=== PATIENT | female | born 1990 | race Caucasian/White ===

== ENCOUNTER 2023-05-08 19:05 | Inpatient (IN) | payer OTHER, SELFPAY ==
[2023-05-08 19:35] VITALS: PULSE 110; TEMP 36.9; O2SAT 92; O2SAT 96
[2023-05-08 19:36] VITALS: BP 133/75; PULSE 105
[2023-05-08 19:37] VITALS: BMI 37.3
[2023-05-08] MEDS: Lactated Ringers 1,000 ML 50 ML IV (19:40)
--- NOTE | 2023-05-08 19:45 | HP.PCM.OB_ITS ---
HPI - General General Date of Admission: 05/08/23 HPI Narrative MONISHA SALAZAR, is a 32 F at 39.6 weeks gestation who presents for elective induction of labor. Patient has a history of loss at 5 months of age due to anomalies. has been uncomplicated. GBS positive. Maternal Data Information ALINA Calculator Estimated Delivery Date Method Current WG Current Estimate 05/09/23 Manual 39w 6d [facility] Medical History (Updated 05/08/23 @ 19:51 by Ayana Marcelo CNM) HPV (human papilloma virus) infection depression Home Medications [id number] 1 mg tablet 1 tab PO DAILY 05/08/23 [History Last Taken 05/08/23 07:00 1 TAB] Allergy/AdvReac Type Severity Reaction Status Date / Time Sulfa (Sulfonamide Allergy Hives Verified 05/08/23 19:39 Antibiotics) ROS Eyes Eyes: Denies blurry vision, change in vision or spots in vision ENT HEENT: Denies dizziness or headache(s) Cardiovascular Cardiovascular: Denies abdominal pain, chest pain or dyspnea Respiratory/Chest Respiratory/Chest: Denies cough, dyspnea, shortness of breath at rest or shortness of breath with exertion Gastrointestinal Gastrointestinal: Denies abdominal pain, diarrhea or vomiting Genitourinary Genitourinary: Denies change in urinary stream, difficulty urinating or dysuria Musculoskeletal Musculoskeletal: Reports none Integumentary Integumentary: Denies rash Neurologic Neurologic: Denies dizziness, headache(s), memory loss or weakness Psychiatric Psychiatric: Reports none Vital Signs Vital Signs Vital Signs: 05/08/23 19:35 05/08/23 19:35 05/08/23 19:35 Temperature Temperature Source Temporal Pulse Rate 110 H Blood Pressure BP Systolic BP Diastolic Pulse Ox 92 05/08/23 19:36 05/08/23 19:36 05/08/23 19:35 Temperature Temperature Source Pulse Rate 105 H Blood Pressure 133/75 H BP Systolic 133 BP Diastolic 75 Pulse Ox 96 05/08/23 19:35 Temperature 98.4 F Temperature Source Pulse Rate Blood Pressure BP Systolic BP Diastolic Pulse Ox Weight Weight: 238 lb 6 oz Body Mass Index (BMI) 37.3 Physical Exam Const alert, oriented x3 and no apparent distress General Appearance: cooperative Orientation / Consciousness: awake Exam Limitations: no limitations HEENT normocephalic Head and Scalp: normal to inspection Eyes General Eye: normal appearance of both eyes Neck full ROM and no lymphadenopathy Lymph Lymphatic: no lymphadenopathy noted Chest inspection of chest normal Resp normal respiratory effort, normal air movement and clear to auscultation bilaterally Effort and Inspection: able to speak in complete sentences and symmetric chest m ovement Cardio regular rate and regular rhythm GI normal to inspection, nondistended, normoactive bowel sounds Manual OB Exam: presentation cephalic Back/Spine normal ROM Extremity full ROM and no calf tenderness Skin no rashes or lesions noted General Skin Exam: no breakdown Neuro oriented x3 and CN's II-XII intact bilaterally Psych mental status grossly normal and thought process normal Labs Labs Labs: Blood Type Pending Antibody Screen NEGATIVE Hct 39.1 % (37-47) Hgb 12.9 g/dL (12.0-15.0) Syphilis Total Ab Non-reactive Assessment & Plan (1) Positive GBS test: (2) 39 weeks gestation of : (3) Encounter for elective induction of labor: (4) History of : PLAN: Plan Admit to labor and delivery Routine labs Start IV fluids and run per orders Start PCN 5 million units IV x 1 now then continue PCN 3 million units IV every 4 hours until delivery CE- /-3 Cytotec 25 mcg PO x 1 now and reevaluate in [address] Paniagua notified and involved with plan of care
[2023-05-08 19:54] LABS: Absolute Lymphocyte Count 1.42 X10^3/uL (0.83-4.51); Absolute Neutrophil Count 8.4 X10^3/uL (2.0-7.7); Basophil# 0.03 X10^3/uL; Basophil% 0.3 % (0-1); Eosinophil# 0.07 X10^3/uL; Eosinophils% 0.6 % (0-5); Hematocrit 39.1 % (37-47); Hemoglobin 12.9 g/dL (12.0-15.0); Lymphocyte # 1.42 X10^3/ul (0.83-4.51); Lymphocyte % 13.1 % (19-41); Mean Corpuscular Hgb 31.4 pg (27.0-32.0); Mean Corpuscular Volume 95.1 fL (81-99); Mean Platelet Vol. 10.3 fl (6.2-12.0); Monocyte# 0.89 X10^3/uL; Monocyte% 8.2 % (0-10); NRBC Flagged by Analyzer 0 % (0-5); Neutrophil # 8.35 X10^3/uL (2.7-7.7); Platelet Count 297 K/mm3 (150-450); RBC Distribution Width CV 14.1 % (11.6-14.6); RBC Distribution Width SD 49.1 fl (35.1-43.9); Red Blood Count 4.11 M/mm3 (4.2-5.4); White Blood Count 10.9 K/mm3 (4.4-11.0)
[2023-05-08 20:20] VITALS: BP 137/75; PULSE 86; TEMP 37.1; O2SAT 96
[2023-05-08 20:38] LABS: Syphilis Antibodies Non-reactive
[2023-05-08] MEDS: miSOPROStol 25 MCG TABLET PO (20:52)
[2023-05-08 23:10] VITALS: TEMP 36.8; O2SAT 93; O2SAT 97
[2023-05-08 23:11] VITALS: BP 127/67; PULSE 87
[2023-05-09] VITALS (59 sets, daily range): BP systolic 101–139; BP diastolic 53–83; PULSE 68–110; TEMP 36.4–38.1; O2SAT 92–100
[2023-05-09] MEDS: Penicillin G 3,000,000 Units 50 ML 100 UNITS IV ×3 (00:55→08:57)
[2023-05-09] MEDS: miSOPROStol 25 MCG TABLET PO (01:02)
[2023-05-09] MEDS: Oxytocin 15 Units/NS 250ml 15 UNITS/250 ML IV.SOLN 2 UNITS IV (06:36)
[2023-05-09] MEDS: 0.9% Normal Saline Single 100 ML IV.SOLN. INTRA-UTER (07:12)
[2023-05-09] MEDS: LACTATED RINGERS 500 ML 999 ML IV (07:35)
[2023-05-09] MEDS: Ondansetron 4 MG/2 ML Vial IV ×2 (09:23→22:42)
[2023-05-09] MEDS: fentaNYL-bupivacaine (epidural) 100 ML BAG EPIDURAL ×3 (09:43→17:24)
[2023-05-09] MEDS: Lactated Ringers 1,000 ML 200 ML IV ×3 (11:06→22:45)
--- NOTE | 2023-05-09 12:30 | PCM.PN.OB ---
Subjective Subjective patient comfortable with epidural Objective Data Objective Data Vital Signs: Vital Signs Temp Pulse BP Pulse Ox 98.8 F 86 117/59 L 100 05/09/23 12:12 05/09/23 12:12 05/09/23 12:11 05/09/23 12:12 Weight: 238 lb 6 oz Body Mass Index (BMI) 37.3 Intake & Output: Intake and Output for Last 24 Hours 05/07/23 05/08/23 05/09/23 23:59 23:59 23:59 Intake Total 105 / 105 1629.83 / 1629.83 Balance 105 / 105 1629.83 / 1629.83 Lab / Micro Data 05/08/23 19:40 Labs: Laboratory Results - last 24 hr 05/08/23 19:40: WBC 10.9, RBC 4.11 L, Hgb 12.9, Hct 39.1, MCV 95.1, MCH 31.4, MCHC 33.0, RDW Std Deviation 49.1 H, RDW Coeff of Isaac 14.1, Plt Count 297, MPV 10.3, Immature Gran % (Auto) 0.800, Neut % (Auto) 77.0 H, Lymph % (Auto) 13.1 L, [place] % (Auto) 8.2, Eos % (Auto) 0.6, Baso % (Auto) 0.3, Absolute Neuts (auto) 8.4 H, Absolute Lymphs (auto) 1.42, Nucleated RBC % 0, Syphilis Total Ab Non-reactive, Antibody Screen NEGATIVE Physical Exam Narrative: cvx - 5/60/-3 NST FHR Rate Baby A Baseline: 140 Variability:: Moderate Accelerations:: 15 x 15 Decelerations:: None Uterine Activity:: Q2-4 minutes Assessment & Plan (1) 39 weeks gestation of : (2) Encounter for elective induction of labor: PLAN: Plan AROM clear fluid IUPC placed COntinue IOL
[2023-05-09] MEDS: Cefazolin 1 GM/50 ML BAG IV (13:10)
[2023-05-09] MEDS: Acetaminophen 500 MG Tablet PO (18:20)
[2023-05-09] MEDS: miSOPROStol 200 MCG Tablet 1000 MCG RC (21:10)
[2023-05-09] MEDS: Methylergonovine 0.2 MG/ML Ampul IM (21:10)
[2023-05-09] MEDS: Oxytocin 15 Units/NS 250ml 15 UNITS/250 ML IV.SOLN 999 UNITS IV (21:20)
--- NOTE | 2023-05-09 22:26 | OP.PCM_ITS ---
Maternal Data Information ALINA Calculator Estimated Delivery Date Method Current Current Estimate 05/09/23 Manual 40w 0d Final ALINA: 05/09/23 Gestational age: 40 weeks Vaginal Delivery Maternal Presentation Maternal Presentation: Elective Induction Type of Induction: Pitocin, [place] Bulb, Amniotomy and Cytotec Operative Information Date of Procedure: 05/09/23 Pre-Operative Diagnosis: 40 weeks gestation Post-Operative Diagnosis: Same Surgery / Procedure Performed: Spontaneous Vaginal Delivery Type of Anesthesia: Epidural Estimated Blood Loss: 1200ml Findings Description of Procedure: Patient prepped & draped when C/C/+2. She pushed well to deliver the head. head gently guided to allow delivery of anterior and posterior shoulders. No excess traction placed on head. Body delivered and 3VC clamped & cut in delayed fashion. Placenta delivered with gentle traction and good uterine tone obtained. Increased vaginal bleeding was noted. Methergine & rectal cytotec was given. As the bleeding persisted the vagina & cervix were examined. A posterior cervical laceration was noted. it was repaired with a running locked and interrupted stitches of 3-0 vicryl. The 2nd degree perineal laceration was also repaired with 3-0 vicryl. Patient's vaginal tissue was note d to be friable in several places. Willy placed on the repaired cervical laceration and friable vaginal tissue. Vaginal packing placed. Presentation: YOLI Amniotic Membrane Rupture Type: Artificial Amniotic Fluid Description: Clear Placental Delivery Description: Expressed Placenta Disposition: [facility] Specimen(s) Removed: Placenta Cord Vessel Description: 3 Vessels Cord Entanglement: None A Gender: Female (1 minute): 8 (5 minute): 9 Delayed Cord Clamping: Yes Post Vaginal Delivery Medications Given After Delivery: IV Pitocin, IM Methergin and - (Rectal cytotec) Episiotomy Description: None Laceration: 2nd degree (see above) Complication Complications: None
[2023-05-09 22:36] LABS: Absolute Lymphocyte Count 0.83 X10^3/uL (0.83-4.51); Absolute Neutrophil Count 21.8 X10^3/uL (2.0-7.7); Basophil# 0.05 X10^3/uL; Basophil% 0.2 % (0-1); Eosinophil# 0.01 X10^3/uL; Hematocrit 37.8 % (37-47); Hemoglobin 12.1 g/dL (12.0-15.0); Lymphocyte # 0.83 X10^3/ul (0.83-4.51); Lymphocyte % 3.3 % (19-41); Mean Corpuscular Hgb 31.3 pg (27.0-32.0); Mean Corpuscular Volume 97.7 fL (81-99); Mean Platelet Vol. 10.5 fl (6.2-12.0); Monocyte# 2.29 X10^3/uL; Monocyte% 9.1 % (0-10); NRBC Flagged by Analyzer 0 % (0-5); Neutrophil # 21.82 X10^3/uL (2.7-7.7); Neutrophil % 86.7 % (47-70); POSITIVE DIFFERENTIAL YES; Platelet Count 275 K/mm3 (150-450); RBC Distribution Width SD 50.6 fl (35.1-43.9); Red Blood Count 3.87 M/mm3 (4.2-5.4); White Blood Count 25.2 K/mm3 (4.4-11.0)
[2023-05-09 22:37] LABS: Differential Indicated SCAN CRITERIA MET
[2023-05-09 22:48] LABS: International Normalized Ratio 1.1; Prothrombin Time (Protime)PT. 14.3 SECONDS (11.7-14.9)
[2023-05-09 22:49] LABS: Fibrinogen 472 mg/dl (203-444); Partial Thromboplast Time 29.4 Seconds (24.1-36.2)
[2023-05-09 23:19] LABS: Differential Comment SCANNED
[2023-05-09] MEDS: Acetaminophen 500 MG Tablet 1000 MG PO (23:50)
[2023-05-09] MEDS: Ibuprofen 600 MG Tablet PO (23:50)
[2023-05-10] VITALS (19 sets, daily range): BP systolic 115–125; BP diastolic 62–80; PULSE 75–103; RESP 16; TEMP 36–37.5; O2SAT 97–98
[2023-05-10] MEDS: Ibuprofen 600 MG Tablet PO ×2 (05:51→17:02)
[2023-05-10] MEDS: Acetaminophen 500 MG Tablet 1000 MG PO (05:51)
--- NOTE | 2023-05-10 09:22 | PN.OBGYN_ITS ---
Subjective Subjective Denies complaints Objective Data Objective Data Vital Signs: Vital Signs Temp Pulse Resp BP Pulse Ox O2 Del Method 97.2 F L 78 16 117/77 98 Room Air 05/10/23 08:26 05/10/23 08:26 05/10/23 08:26 05/10/23 08:26 05/10/23 00:30 05/10/23 08:26 Oxygen Delivery Method Room Air Weight: 238 lb 6 oz Body Mass Index (BMI) 37.3 Intake & Output: Intake and Output for Last 24 Hours 05/08/23 05/09/23 05/10/23 23:59 23:59 23:59 Intake Total 105 / 105 4314.09 / 4314.09 1111.99 / 1111.99 Output Total 1550 / 1550 500 / 500 Balance 105 / 105 2764.09 / 2764.09 611.99 / 611.99 Lab / Micro Data 05/09/23 22:17 Labs: Laboratory Results - last 24 hr 05/09/23 22:17: WBC 25.2 H, RBC 3.87 L, Hgb 12.1, Hct 37.8, MCV 97.7, MCH 31.3, MCHC 32.0, RDW Std Deviation 50.6 H, RDW Coeff of Isaac 14.0, Plt Count 275, MPV 10.5, Immature Gran % (Auto) 0.700, Neut % (Auto) 86.7 H, Lymph % (Auto) 3.3 L, [place] % (Auto) 9.1, Eos % (Auto) 0.0, Baso % (Auto) 0.2, Absolute Neuts (auto) 21.8 H, Absolute Lymphs (auto) 0.83, Nucleated RBC % 0, Differential Comment SCANNED, Diff Path Review January foll, PT 14.3, INR 1.1, APTT 29.4, Fibrinogen 472 H Physical Exam Const alert, oriented x3 and no apparent distress HEENT normocephalic GI soft to palpation, non-tender and non-distended GI Narrative: fundus firm, mid & below umbilicus Extremity normal to inspection and no calf tenderness Assessment & Plan (1) History of : COMMENT: PPD#1 (2) Vaginal delivery: PLAN: Plan Heme - Repeat cbc this am. Vaginal packing reviewed & patient doing well. ID - AF since delivery. Received gentamycin in addition to the ancef (for GBS) due to one maternal temp of 100.6 in labor. No signs infection at this time. Routine PP care
[2023-05-10 09:36] LABS: Absolute Lymphocyte Count 2.33 X10^3/uL (0.83-4.51); Absolute Neutrophil Count 17.7 X10^3/uL (2.0-7.7); Basophil# 0.04 X10^3/uL; Basophil% 0.2 % (0-1); Eosinophils% 0.4 % (0-5); Hematocrit 30.4 % (37-47); Hemoglobin 10.2 g/dL (12.0-15.0); Lymphocyte # 2.33 X10^3/ul (0.83-4.51); Lymphocyte % 10.4 % (19-41); Mean Corp Hgb Conc 33.6 g/dL (32-36); Mean Corpuscular Hgb 32.6 pg (27.0-32.0); Mean Corpuscular Volume 97.1 fL (81-99); Mean Platelet Vol. 10.4 fl (6.2-12.0); Monocyte# 2.18 X10^3/uL; Monocyte% 9.7 % (0-10); NRBC Flagged by Analyzer 0 % (0-5); Neutrophil # 17.65 X10^3/uL (2.7-7.7); Neutrophil % 78.5 % (47-70); POSITIVE DIFFERENTIAL YES; Platelet Count 287 K/mm3 (150-450); RBC Distribution Width CV 14.2 % (11.6-14.6); RBC Distribution Width SD 49.7 fl (35.1-43.9); Red Blood Count 3.13 M/mm3 (4.2-5.4); White Blood Count 22.5 K/mm3 (4.4-11.0)
[2023-05-10 09:41] LABS: Differential Indicated SCAN CRITERIA MET
[2023-05-10 10:11] LABS: Differential Comment SCANNED
--- NOTE | 2023-05-10 20:56 | CASEMGMT ---
Social Work Assessment Labor and Delivery Unit Patient Address: [id number] Phone number: [phone] Date of Referral: 05/10/2023 Time of Referral:? 12:20 Referred By: Georgia Bernabe Date of Intervention: ?05/10/2023 Time of Intervention:? 17:45 Reason for Referral:? Mental Health History obtained from: medical records and mother of baby (MOB) and FOB Household composition: MOB, FOB ? Mo Patient's parent/guardian status: MOB and FOB are celebrating their one year wedding anniversary today. Medical History: MOB received adequate care. MOB lost a baby boy at age 5 months due to anomalies. MOB denies any medical concerns or complications currently. MOB reports baby girl, Roe [place], apgars 8/9 and weight [id number] Educational Status: No literacy concerns Financial Status: No financial concerns Supplies: Parents report having all necessary supplies and equipment Childcare/Caregiver(s):? MOB on maternity leave, considering staying home Transportation:? No concerns Programs/Agencies Involved: ??None Children Services/Legal Issues:??? None Behavioral Health Issues: ??Mental Health History: Mother denies any major mental health concerns/history. MOB does report depression after previous child but uncertain if it was PPD or due to the of her 5 month old. Substance Use History:?? Denies personal history Family History: Denies? Drug Screens: ?None Family/Social Stressors:? Denies Support Systems: Grandparents are involved and supportive Depression: Education/resources provided and parents receptive. Shaken Baby: Education/resources provided and parents receptive. Safe Sleeping: Education/resources provided and parents receptive ASSESSMENT: MOB and FOB appropriate. SW provided support and briefly discussed loss of previous child and possibly impact. MOB is open to seeking help if needed. No immediate concerns or needs at this time.? PLAN:? ?No other services requested or indicated Lorraine Andrew MSW, [employer] OPERATOR HELPER
[2023-05-11 02:09] VITALS: BP 127/57; PULSE 78; RESP 15; TEMP 36.1
[2023-05-11] MEDS: Acetaminophen 500 MG Tablet 1000 MG PO (02:14)
--- NOTE | 2023-05-11 08:04 | PCM.PN.BLA ---
Physical Exam Narrative abd: fundus firm Const alert and oriented x3 General Appearance: cooperative HEENT normocephalic Neck General: normal visual inspection GI soft to palpation and non-distended GI Narrative: Fundus firm Extremity normal to inspection and no calf tenderness Skin no rashes or lesions noted Neuro oriented x3 and CN's II-XII intact bilaterally Psych mental status grossly normal Assessment & Plan Assessment/Plan (1) Vaginal delivery: (2) hemorrhage: QUALIFIERS: hemorrhage type: other immediate Qualified Code(s): O72.1 - Other immediate hemorrhage PLAN: cervical laceration (3) Laceration of cervix during delivery: PLAN: Plan PPD# 2 , Doing well Routine care pain mgmt ambulation dc home today
--- NOTE | 2023-05-11 08:06 | DCINST_ITS ---
Discharge Instructions Diet Discharge Diet: No restrictions Activity May resume sexual activity in: 6-8 weeks Dressing / Incision Call your doctor if you observe: Fever of 101 or Higher, Inability to urinate, Using more than 1 pad per hour and Uncontrolled pain Follow Up Care Please Follow Up With: Sherin Ulloa MD When: 1-2 weeks post and again at 6 weeks post . [phone] Test Results: Test results from this visit will be discussed in further detail at your follow- up appointment, if applicable. Discharge Plan Admission Admit Date/Time: 05/08/23 19:05 Attending Provider: Brenton Montiel Discharge Orders/Prescriptions Prescriptions: New acetaminophen 500 mg Tablet 1,000 mg PO Q6H PRN PRN (Reason: Pain 1-10 Or Fever) Qty: 0 0RF ibuprofen 600 mg Tablet 600 mg PO Q6H PRN PRN (Reason: Pain Score 1-10) Qty: 0 0RF Continued [id number] 1 mg tablet 1 tab PO DAILY Disposition Disposition (needs filled in before D/C Order can be placed): Home, Self Care
[2023-05-11 10:59] VITALS: BP 118/69; PULSE 76; RESP 16; TEMP 36.2
[2023-05-11] MEDS: Ibuprofen 600 MG Tablet PO (11:44)
[2023-05-14 12:52] LABS: Pathologist Review Reviewed
[2023-05-14 12:55] LABS: Pathologist Review Reviewed
--- NOTE | 2023-05-15 13:00 | NURSING ---
Follow up questions asked at visit. Family happy to be home. MOB having some back and neck pain, but she feels like it's due to pushing and looking down to feed infant. Denies other s+s at this time. Seen for visit today, nursing then pumping and supplementing.
== END 2023-05-11 13:00 | disposition home or self-care (01) | DRG 768 ==
PROVIDERS: Admitting Provider Advanced Practice Midwife; Referring Provider Advanced Practice Midwife; Visit Provider Obstetrics & Gynecology
DX: O72.1 Other immediate postpartum hemorrhage (principal); Z37.0 Single live birth; O71.3 Obstetric laceration of cervix; B95.1 Streptococcus, group B, as the cause of diseases classified elsewhere; O70.1 Second degree perineal laceration during delivery; Z3A.39 39 weeks gestation of pregnancy; O99.824 Streptococcus B carrier state complicating childbirth; Z87.59 Personal history of other complications of pregnancy, childbirth and the puerperium
CPT/HCPCS: 59025; 59050; 85025; 85384; 85610; 85730; 86780; 86850; 86900; 86901; 99221; J7120; G0378; J2405